=== PATIENT | female | born 1935 | race Caucasian/White ===

== ENCOUNTER 2019-07-05 10:53 | Emergency (ER) | payer MEDICARE, BC, SELFPAY ==
[2019-07-05 11:04] VITALS: BP 146/93; PULSE 78; RESP 16; TEMP 37.1; O2SAT 98
--- NOTE | 2019-07-05 11:30 | DI.CT_ITS ---
SYMPTOM/DIAGNOSIS: SYNCOPE NONCONTRAST HEAD CT: There is cerebral atrophy consistent with the patient's age. Areas of decreased attenuation are present in the white matter consistent with small vessel ischemic disease. 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 No evidence of an acute territorial infarct, hemorrhage, midline shift or mass effect is identified. The visualized paranasal sinuses are clear as are the mastoid air cells. The calvarium is intact. IMPRESSION: No acute intracranial process. The findings were discussed with the ER on the date of the examination.
--- NOTE | 2019-07-05 11:30 | DI.RAD_ITS ---
SYMPTOMS/DIAGNOSIS: MEDIAL KNEE PAIN S/P FALL RIGHT KNEE: Three views. No acute fracture or dislocation is seen. There is periarticular spurring involving all three joint compartments. There is chondrocalcinosis present. There is a large suprapatellar joint effusion. Enthesophytes are seen at the anterior patella. There is atherosclerosis present in the soft tissues posteriorly. IMPRESSION: 1. No acute fracture or dislocation. 2. Joint effusion.
[2019-07-05 12:04] LABS: Abs Immature Grans 0.01 k/cumm (0.0-0.09); Absolute Basophil Count 0.02 k/cumm (0.0-0.2); Absolute Eosinophil Count 0.13 k/cumm (0.0-0.7); Absolute Lymphocyte Count 1.42 k/cumm (1.2-3.4); Absolute Monocyte Count 0.64 k/cumm (0.11-0.7); Absolute Neutrophil Count 3.41 k/cumm (1.2-6.7); Basophils % 0.4; Eosinophils % 2.3; HCT 40.5 % (36.0-46.0); HGB 13.1 g/dL (12.0-15.5); Immature Grans % 0.2; Lymphocytes % 25.2; Mean Corp. HGB Concentration 32.3 g/dL (32.0-36.0); Mean Corpuscular Hemoglobin 33.6 pg (27.0-33.0); Mean Corpuscular Volume 103.8 fL (80-95); Mean Platelet Volume 10.5 fL (8.0-11.0); Monocytes % 11.4; Neutrophils % 60.5; Platelet Count 250 x1000/uL (130-400); RBC Distribution Width 13.7 % (11.7-14.6); White Blood Cell Count 5.63 k/cumm (4.4-10.8)
[2019-07-05 12:25] LABS: ALT 24 U/L (12-78); AST 14 U/L (15-37); Albumin 3.8 g/dL (3.4-5.0); Alkaline Phosphatase 92 U/L (46-116); Anion Gap 9.2 mmol/L (3-11); BUN 19 mg/dL (7-18); Bilirubin, Total 0.5 mg/dL (0.2-1.0); CO2 27.8 mmol/L (21.0-32.0); CREATININE 0.71 mg/dL (0.55-1.02); Calcium 9.1 mg/dL (8.5-10.1); Chloride 105 mmol/L (98-107); Glucose 103 mg/dL (70-100); Sodium 142 mmol/L (136-145); Total Protein 7.7 g/dL (6.4-8.2)
[2019-07-05 12:28] LABS: Troponin I < 0.05 ng/mL (0.00-0.06)
[2019-07-05 12:47] LABS: D-Dimer 3181 ng/mlFEU (<500)
--- NOTE | 2019-07-05 12:49 | DI.CT_ITS ---
SYMPTOMS/DIAGNOSIS: SYNCOPE, ELEVATED D-DIMER CT ANGIOGRAPHY OF THE CHEST: CT angiography was performed with multi slice acquisition and multi planar and 3D reconstruction. Routine examination was performed. There is no evidence of a pulmonary embolus. There is no evidence of thoracic aortic dissection. The heart size is within normal limits. No significant pericardial effusion is seen. No findings to suggest right ventricular dysfunction are present. No evidence of thoracic adenopathy or pleural effusion is seen. Dependent atelectatic changes are seen in the lungs. No focal consolidating infiltrates are seen. The tracheobronchial tree is unremarkable. Upper abdominal images show nonobstructing stones in the kidneys bilaterally. Degenerative changes are seen in the spine. IMPRESSION: No evidence of a pulmonary embolus. The findings were discussed with the Emergency Department on the date of the examination.
[2019-07-05 13:06] LABS: Bilirubin Negative (Negative); Blood Negative (Negative); Clarity Clear (Clear); Glucose Negative (Negative); Ketones Negative (Negative); Leukocyte Esterase Small (Negative); Nitrite Negative (Negative); Specific Gravity 1.015 (1.005-1.025); Urobilinogen 0.2 EU/dL (Up TO 0.2)
[2019-07-05 13:25] LABS: Bacteria Rare HPF (Negative); C & S Indicated? Yes; Casts Negative LPF (Negative); Crystals Negative HPF (Negative); Epithelial Cells Few HPF (Negative); Mucus Negative (Negative); RBC 0-2 (0-2)
--- NOTE | 2019-07-05 13:45 | DI.US_ITS ---
SYMPTOMS/DIAGNOSIS: ELEVATED D-DIMER, LEG PAIN RIGHT LOWER EXTREMITY ULTRASOUND: The deep veins of the right lower extremity were evaluated sonographically. They show normal compression, augmentation and color flow. No evidence of a deep venous thrombus is seen in the right lower extremity. There is a 4.8 x 1.9 x 3.1 cm complex fluid collection in the posterior medial knee, most suggestive of a Decker's cyst. The saphenofemoral junction appears unremarkable. IMPRESSION: 1. No evidence of a right lower extremity deep venous thrombus. 2. 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 The findings were discussed with the Emergency Department on the date of the examination.
[2019-07-05] MEDS: Omnipaque 350 MG/ML 100 ML BTL IJ (14:07)
--- NOTE | 2019-07-05 14:18 | W.ED.GENAD ---
Discharge Plan Disposition Patient Disposition: HOME Condition: Good Discharge Details Chief Complaint: Orthopedic Clinical Impression: Right knee sprain Primary Care Provider: Bhumi,Local ED Provider: Pardeep Scherer Home Meds and New Rx's Prescriptions: Continued diclofenac sodium [Voltaren-XR] 100 mg Tablet Extended Release 24 Hr 75 mg PO PRN PRNRF: 0 alprazolam 0.5 mg Tablet 0.5 mg PO DAILY RF: 0 levothyroxine 25 mcg Tablet 25 mcg PO DAILY RF: 0 Discharge Instructions Instructions: Knee Sprain (ED) Additional Instructions: You may continue to take your prescribed medications as needed for discomfort and your daily medications as well. Please wear knee brace during activity and slowly advance activity as tolerated by pain and discomfort. Return to the emergency department as needed for reassessment or for any new or worsening symptoms otherwise follow-up with your primary care provider. Referrals: [facility] Emergency Dept. [Outside] (Return to emergency department as needed for reassessment or follow-up with your primary care provider when you return home to [place]) Discharge Data Discharge Date/Time-TO BE ENTERED AT DEPARTURE: 07/05/19 15:00 Medical Decision Making Patient presenting to the emergency department chief complaint of right knee pain. Patient states that on the she had a syncopal episode. Patient does not remember the event and did have full loss of consciousness. Patient's significant other states that he went to check on her when he saw her lying on the ground and she was completely unconscious for an unknown amount of time but thinks it was less than 1 minute. Which when she came to she did not remember what happened but had no other focal symptoms beyond right knee pain. Patient states over the past couple days she has had a headache but denies hitting her head and otherwise mostly here for knee pain with some swelling. Patient has history of arthritis, anxiety, and hypothyroidism. Physical exam shows unremarkable cardiac exam, respiratory exam and normal neurological exam with no acute signs of CVA or neurological deficit. Patient does have tenderness to the medial aspect of the knee and laxity with valgus testing. Given the patient had a syncopal episode with loss of consciousness I do feel that thorough work-up is required to rule out any emergent syncopal episodes so plan to do labs including d-dimer, CT imaging of head, and EKG. For knee pain plan to do x-ray imaging. Review of labs show a nondiagnostic CBC, CMP, negative troponin, d-dimer of 3181, UA with slight amount of WBCs, epithelial cells, and bacteria but patient states that she is asymptomatic. Far is UA goes I do not feel that patient needs treatment but will wait on pending culture for any treatment as needed. For elevated d-dimer and right knee pain including posterior aspect of the knee I do feel that ultrasound is required along with chest CTA given that patient had syncopal episode. Radiological imaging of the knee reveals degenerative joint disease but no acute signs of fracture. Review of ultrasound imaging and speaking with dialysis patient care technician shows a Decker's cyst posterior aspect of the right knee otherwise no sign of DVT. CTA also reveals no PE or other acute findings. Given this I feel the patient is able to be safely discharged. Patient placed in a hinged knee brace and did state that that provided additional support. Return precautions were discussed otherwise patient is already prescribed diclofenac so she was encouraged to use her prescribed medications as needed. After discussion of diagnosis and plan of care patient has no further needs, questions, or concerns and states clear understanding to return to the emergency department for any worsening symptoms. Lab Data Lab results reviewed: Yes I reviewed the patient's lab results. ECG Data Attestation: I personally reviewed and interpreted this ECG (s) as follows: Prior ECG tracings: not available for review Interpretation: EKG reviewed with attending physician Dr. Kristen Velázquez at 1206. No acute STEMI, sinus rhythm, rate of 68, poor R wave progression but nonspecific. No acute ischemic findings noted. HPI General Mode of arrival: ambulatory. Date/Time Provider Initiated Documentation: 07/05/19 11:02. Limitations to Documentation: no limitations. Information obtained by: patient, family and RN notes reviewed. History of Present Illness 83 year old F presents to the emergency department with the chief complaint of Right knee pain, syncope, described as moderate, with intensity rated at 7. Quality is described as aching, and is localized to the right and lower extremity. Patient started experiencing this day(s) (6) and it has been constant. No relieving factors improve symptom(s), Other factors that worsen symptoms (Syncope) . Patient did receive the following treatments prior to arrival, NSAID Related Data Home Medications Medication Instructions Recorded Confirmed alprazolam 0.5 mg PO DAILY 07/05/19 07/05/19 diclofenac sodium [Voltaren-XR] 75 mg PO PRN PRN 07/05/19 07/05/19 levothyroxine 25 mcg PO DAILY 07/05/19 07/05/19 Allergies Allergy/AdvReac Type Severity Reaction Status Date / Time aspirin AdvReac Intermediate stomach Unverified 07/05/19 11:12 bleed General Stated Complaint: Orthopedic CLAUDIA: 3 Review of Systems Constitutional Denies body ache(s), Denies chills, Denies fever(s) and Reports headache(s) ENT Denies dizziness and Reports headache(s) Cardiovascular Denies chest pain, Reports syncope and Denies dyspnea Respiratory Denies cough, Denies hemoptysis and Denies dyspnea Gastrointestinal Denies nausea and Denies vomiting Genitourinary Denies urinary frequency and Denies dysuria Musculoskeletal Reports as per HPI, Reports joint swelling, Denies numbness and Denies tingling Integumentary/Breasts Denies rash, Denies sores and Denies wounds Neurologic Reports as per HPI, Denies dizziness, Reports syncope, Reports headache(s), Denies numbness, Denies sensory deficit and Denies tingling [facility] Medical History (Updated 07/09/19 @ 08:29 by Pardeep Scherer NP) Anxiety about health (Acute) Arthritis (Acute) Hypothyroidism (Chronic) Social History Do you feel safe at home: Yes Do you feel safe in your relationship?: Yes Exam Const General: cooperative, healthy appearing, no acute distress and well groomed Orientation: alert, awake and oriented x3 HENMT Head: normal to inspection Ears: hearing grossly normal bilaterally and TM's normal bilaterally Mouth: oral mucosae normal and moist mucous membranes Throat: posterior oropharynx normal Eyes Visual Bran: normal visual bran by confrontation Alignment and Position: alignment normal Periorbital: periorbital findings normal Eyelids: eyelids normal Sclera: sclerae normal Cornea: corneas normal Pupils: PERRL EOM: EOM intact bilaterally Neck Neck: normal visual inspection, full ROM, no lymphadenopathy and no meningeal signs Resp Effort & Inspection: normal respiratory effort and able to speak in complete sentences Auscultation: clear to auscultation bilaterally Cardio Rate: regular rate Rhythm: regular rhythm Heart Sounds: S1 normal and S2 normal Neuro General: alert, awake, oriented x3, gait normal, tone normal, moves all extremities, CN's II-XI intact bilaterally, not confused and other (negitive hints) Cognition: normal cognition Speech: speech normal Motor: muscle tone normal throughout, no pronator drift, no movement abnormalities noted and no fasciculations Sensory Exam: no sensory deficits noted Coordination: Romberg test normal and Does not sway with eyes open Extrem Right lower extremity: hip/thigh Details: normal to inspection; no tenderness, knee Details: tenderness Location: of the popliteal fossa and of the medial joint line, swelling Location: of the pre-patellar area, abnormal ROM Details: pain with active ROM during; able to extend lower leg actively and knee ligament exam abnormal Details: valgus stress test normal Details: both pain and laxity noted; no ecchymosis, no crepitus and no deformity and lower leg Details: normal to inspection Course Vital Signs Temperature 37.1 C 07/05/19 11:04 Pulse 78 07/05/19 11:04 Respiratory Rate 16 07/05/19 11:04 Blood Pressure 146/93 H 07/05/19 11:04 Pulse Oximetry 98 07/05/19 11:04 Temperature 37.1 C 07/05/19 11:04 Temperature Source Skin 07/05/19 11:04 Pulse 78 07/05/19 11:04 Respiratory Rate 16 07/05/19 11:04 Respiratory Effort 07/05/19 11:19 Blood Pressure 146/93 H 07/05/19 11:04 Blood Pressure Position Sitting 07/05/19 11:04 Pulse Oximetry 98 07/05/19 11:04 Oxygen Delivery Method Room Air 07/05/19 11:04 Oxygen Flow Rate 0 07/05/19 11:04 Pain Level 8 07/05/19 12:05 Comment 07/05/19 11:04 Lab/Test Results Lab/Test Results: 07/05/19 12:58 Urine - Clean Catch Urine Culture - Pending Laboratory Tests Range/Units 07/05/19 07/05/19 07/05/19 11:40 11:40 11:40 WBC (4.4-10.8) k/cumm 5.63 RBC (4.00-5.20) m/cumm 3.90 L Hgb (12.0-15.5) g/dL 13.1 Hct (36.0-46.0) % 40.5 MCV (80-95) fL 103.8 H MCH (27.0-33.0) pg 33.6 H MCHC (32.0-36.0) g/dL 32.3 RDW (11.7-14.6) % 13.7 Plt Count (130-400) x1000/uL 250 MPV (8.0-11.0) fL 10.5 Immature Gran % 0.2 Neutrophils % 60.5 Lymphocytes % 25.2 Monocytes % 11.4 Eosinophils % 2.3 Basophils % 0.4 Absolute Neutrophils (1.2-6.7) k/cumm 3.41 Absolute Lymphocytes (1.2-3.4) k/cumm 1.42 Absolute Monocytes (0.11-0.7) k/cumm 0.64 Absolute Eosinophils (0.0-0.7) k/cumm 0.13 Absolute Basophils (0.0-0.2) k/cumm 0.02 D-Dimer (<500) ng/mlFEU 3181 H Sodium (136-145) mmol/L 142 Potassium (3.5-5.1) mmol/L 4.0 Chloride (98-107) mmol/L 105 Carbon Dioxide (21.0-32.0) mmol/L 27.8 Anion Gap (3-11) mmol/L 9.2 BUN (7-18) mg/dL 19 H Creatinine (0.55-1.02) mg/dL 0.71 Estimated GFR/1.73 m2 (mL/min/1.73m2) >= 60.00 Glucose (70-100) mg/dL 103 H Calcium (8.5-10.1) mg/dL 9.1 Magnesium (1.8-2.4) mg/dL 2.0 Total Bilirubin (0.2-1.0) mg/dL 0.5 AST (15-37) U/L 14 L ALT (12-78) U/L 24 Alkaline Phosphatase (46-116) U/L 92 Troponin I (0.00-0.06) ng/mL < 0.05 Total Protein (6.4-8.2) g/dL 7.7 Albumin (3.4-5.0) g/dL 3.8 Urine Color (Yellow) Urine Clarity (Clear) Urine pH (5-8) Ur Specific [place] (1.005-1.025) Urine Protein (Negative) mg/dL Urine Ketones (Negative) mg/dL Urine Blood (Negative) Urine Nitrite (Negative) Urine Bilirubin (Negative) Urine Urobilinogen (Up TO 0.2) EU/dL Ur Leukocyte Esterase (Negative) Urine RBC (0-2) Urine WBC (0-5) HPF Ur Epithelial Cells (Negative) HPF Urine Crystals (Negative) HPF Urine Bacteria (Negative) HPF Urine Casts (Negative) LPF Urine Mucus (Negative) Urine Other (Negative) Ur Culture Indicated? Urine Glucose (Negative) mg/dL Range/Units 07/05/19 12:58 WBC (4.4-10.8) k/cumm RBC (4.00-5.20) m/cumm Hgb (12.0-15.5) g/dL Hct (36.0-46.0) % MCV (80-95) fL MCH (27.0-33.0) pg MCHC (32.0-36.0) g/dL RDW (11.7-14.6) % Plt Count (130-400) x1000/uL MPV (8.0-11.0) fL Immature Gran % Neutrophils % Lymphocytes % Monocytes % Eosinophils % Basophils % Absolute Neutrophils (1.2-6.7) k/cumm Absolute Lymphocytes (1.2-3.4) k/cumm Absolute Monocytes (0.11-0.7) k/cumm Absolute Eosinophils (0.0-0.7) k/cumm Absolute Basophils (0.0-0.2) k/cumm D-Dimer (<500) ng/mlFEU Sodium (136-145) mmol/L Potassium (3.5-5.1) mmol/L Chloride (98-107) mmol/L Carbon Dioxide (21.0-32.0) mmol/L Anion Gap (3-11) mmol/L BUN (7-18) mg/dL Creatinine (0.55-1.02) mg/dL Estimated GFR/1.73 m2 (mL/min/1.73m2) Glucose (70-100) mg/dL Calcium (8.5-10.1) mg/dL Magnesium (1.8-2.4) mg/dL Total Bilirubin (0.2-1.0) mg/dL AST (15-37) U/L ALT (12-78) U/L Alkaline Phosphatase (46-116) U/L Troponin I (0.00-0.06) ng/mL Total Protein (6.4-8.2) g/dL Albumin (3.4-5.0) g/dL Urine Color (Yellow) Yellow Urine Clarity (Clear) Clear Urine pH (5-8) 7.0 Ur Specific [place] (1.005-1.025) 1.015 Urine Protein (Negative) mg/dL Negative Urine Ketones (Negative) mg/dL Negative Urine Blood (Negative) Negative Urine Nitrite (Negative) Negative Urine Bilirubin (Negative) Negative Urine Urobilinogen (Up TO 0.2) EU/dL 0.2 Ur Leukocyte Esterase (Negative) Small H Urine RBC (0-2) 0-2 Urine WBC (0-5) HPF 3-5 Ur Epithelial Cells (Negative) HPF Few Urine Crystals (Negative) HPF Negative Urine Bacteria (Negative) HPF Rare Urine Casts (Negative) LPF Negative Urine Mucus (Negative) Negative Urine Other (Negative) Ur Culture Indicated? Yes Urine Glucose (Negative) mg/dL Negative
[2019-07-05 14:49] VITALS: BP 155/82; PULSE 72; RESP 15; TEMP 37.1; O2SAT 99
== END 2019-07-05 15:00 | disposition home or self-care (01) ==
PROVIDERS: Emergency Provider Nurse Practitioner Family
DX: R55 Syncope and collapse (principal); S83.91XA Sprain of unspecified site of right knee, initial encounter; W19.XXXA Unspecified fall, initial encounter; M71.21 Synovial cyst of popliteal space [Baker], right knee
CPT/HCPCS: 29505; 36415; 71275; 73562; 80053; 93005; 99285; 70450; 81003; 81015; 83735; 84484; 85025; 85379; 87086; 93010; 93971; J3490; L1820